=== PATIENT | female | born 1945 | race Caucasian/White ===

== ENCOUNTER 2021-07-11 07:26 | Day surgery (SDC) | payer OTHER, SELFPAY ==
[2021-07-04 12:29] VITALS: BMI 25.9
--- NOTE | 2021-07-08 08:37 | MHC.SHP ---
Pre-Procedural Eval Section A Date of Service: 07/08/21 The patient is an INPATIENT: No Changes since office visit: No Cold of Flu in the past 2 weeks, No New Medical Problems, No Changes in Medication and No Patient answered all questions The History & Physical has been completed within 30 days and I have reviewed it.: Yes Section B Chief Complaint: Cataract Left eye Allergies: Allergies Allergy/AdvReac Type Severity Reaction Status Date / Time doxycycline Allergy Unknown Verified 07/04/21 10:14 Penicillins Allergy Rash Verified 07/04/21 10:14 alendronate sodium AdvReac bone pain Verified 07/04/21 10:14 [From Fosamax] Plan Diagnosis/Plan: Unchanged I have reviewed the history and physical and performed a pertinent physical examination on my patient. No changes have occurred unless specified.
[2021-07-11 08:13] VITALS: BP 141/82; PULSE 87; RESP 18; TEMP 36.6; O2SAT 98
[2021-07-11] MEDS: Tetracaine HCl/PF 0.5% Oph Sol 4 ML DROPS 1 DROP EYE-LEFT (08:17)
[2021-07-11] MEDS: Tropicamide 1 % Ophth Sol 3 ML BTL 1 DROP EYE-LEFT ×3 (08:17→08:19)
[2021-07-11] MEDS: Phenylephrine HCL 2.5% Oph SoL 2 ML BOTTLE 1 DROP EYE-LEFT ×3 (08:17→08:19)
[2021-07-11] MEDS: Lactated Ringers 500 ML 50 ML IVCONT (08:18)
--- NOTE | 2021-07-11 08:47 | HO.ANESPROP2 ---
HPI - Anesthesia Eval Consult details Narrative: left eye cataract [facility] [place] Past Medical History Medical History (Updated 07/04/21 @ 12:31 by hTeresa Yeboah RN) Arthritis COPD (chronic obstructive pulmonary disease) GERD (gastroesophageal reflux disease) Hx of cervical cancer Hyperlipidemia Osteoporosis Thyroid nodule Upper back pain Family History Family history of problems with anesthesia: No Surgical History Surgical History (Updated 07/04/21 @ 12:26 by Theresa Yeboah RN) History of hysteroscopy Hx of bilateral salpingectomy Hx of tubal ligation Hx of unilateral oophorectomy History of Problems with Anesthesia: No Social History Social History Patient Tobacco Use Status: Never used Tobacco Are you DNR?: No Advance Directives: No Advance Directives Information Provided: Yes Advance Directives on File: No Meds Allergies Allergy/AdvReac Type Severity Reaction Status Date / Time doxycycline Allergy Unknown Verified 07/04/21 10:14 Penicillins Allergy Rash Verified 07/04/21 10:14 alendronate sodium AdvReac bone pain Verified 07/04/21 10:14 [From Fosamax] Active Medications: Current Medications Lactated Ringer's (Lr) 500 mls @ 50 mls/hr IVCONT .Q10H GUILLERMINA Last Admin: 07/11/21 08:18 Dose: 50 mls/hr Documented by: Povidone Iodine (Povidone Iodine 5 % Ophth Soln 30 Ml Bottle) 1 appl EYE-LEFT PREOP PRN PRN Reason: Pre-Op Surgical Implant Prophy Home Medications Medication Instructions Recorded Confirmed Last Taken Type Glucosamine Chondroitin 07/04/21 Unknown History acetaminophen 650 mg 650 mg PO Q8H PRN 07/04/21 07/04/21 Unknown History tablet,extended release (Tylenol 8 Hour) calcium carbonate 500 mg (1,250 1 tab PO DAILY 07/04/21 07/04/21 Unknown History mg)-vitamin D3 400 unit tablet (Calcium 500 + D) cholecalciferol (vitamin D3) 25 25 mcg PO DAILY 07/04/21 07/04/21 Unknown History mcg (1,000 unit) tablet (Vitamin D3) multivitamin 1 tab PO DAILY 07/04/21 07/04/21 Unknown History omeprazole 20 mg capsule,delayed 1 cap PO DAILY 07/04/21 07/04/21 Unknown History release simvastatin 10 mg tablet 1 tab PO BEDTIME 07/04/21 07/04/21 Unknown History Exam Exam Date and Time: July 11, 2021 0847 Height,Weight and Vital Signs: Height 5 ft 2 in Weight 64.41 kg Last Vital Signs Temp 98 F 07/11/21 08:13 Pulse 87 07/11/21 08:13 Resp 18 07/11/21 08:13 BP 141/82 H 07/11/21 08:13 Pulse Ox 98 07/11/21 08:13 Airway Mallampati Class: II TM Dist: >3cm Neck ROM: Full Denture: Upper and Lower Heart: [id number] Lungs: cta b/l Assessment and Plan Assessment Anesthesia Assessment: Anesthesia Plan Discussed and Chart Reviewed Final Anesthetic Review Family History of Problems with Anesthesia: No History of Problems with Anesthesia: No NPO: Yes ASA Class: III Final Preanesthetic Review: No Changes in Pt Med Stat, Meds/Allgs Chart Reviewed, Consent Obtained/Reviewed and Anes Risks/Benef Reviewed Patient Risk: Intermediate Procedure Risk: Low Assessment/Block/Sedation in SS: Assess/Block/Sedation-SS Anesthetic Plan Anesthetic Plan: MAC: and Agree w/ Assess. and Plan Disposition: Standard PACU
--- NOTE | 2021-07-11 09:47 | HO.PNOPHT ---
Ophthalmology Procedure Procedure Date of Service: 07/11/21 Ophthalmology Viscoelastic: Healon Duet Dual Pack Pro Ophthalmology Lenses: TECYE [id number] (22) Procedure Notes: PREOPERATIVE DIAGNOSIS: Decreased visual acuity left eye secondary to cataract POSTOPERATIVE DIAGNOSIS: Same PROCEDURE: Left cataract extraction with intraocular lens insertion SURGEON: Joe Jose M.D. ANESTHESIA: Topical/MAC ESTIMATED BLOOD LOSS: None COMPLICATIONS: None After obtaining informed consent, the patient was brought to the operation room suite and placed in the supine position. After adequate sedation per anesthesia, topical drops of Tetracaine were given to the left eye. The eye was then prepped and draped in the usual sterile fashion. The operating room microscope was then positioned over the operative eye and a lid speculum placed. A paracentesis was created. Viscoelastic was then instilled into the anterior chamber. A three plane incision was then created temporally, utilizing a 2.85 mm keratome. Capsulotomy forceps were then utilized to create a circular tear capsulotomy. Hydrodissection and hydrodelineation were carried out until adequate mobilization of the nucleus occurred. Phacoemulsification was then utilized to remove the dense central nucleus followed by removal of the cortical material utilizing the automated aspiration irrigation unit. Viscoat elastic was instilled into the posterior capsular bag followed by placement of a posterior chamber intraocular lens without difficulty. The residual Viscoat elastic was then removed utilizing the automated IA machine. The wound was check and found to be watertight. The patient tolerated the procedure well and the lid speculum was removed. Intracameral injection of Vigamox 0.1 mL followed by a subtenon injection of Kenalog-40 0.2 mL were administered. The patient will be seen in the a.m.
[2021-07-11 10:14] VITALS: BP 131/80; PULSE 79; RESP 16; TEMP 36.4; O2SAT 97
== END 2021-07-11 10:22 | disposition home or self-care (01) ==
PROVIDERS: Visit Provider Ophthalmology
PROC: (CPT 66985; principal; 2021-07-11 09:30)
DX: H25.12 Age-related nuclear cataract, left eye (principal); H40.013 Open angle with borderline findings, low risk, bilateral; H52.4 Presbyopia; J44.9 Chronic obstructive pulmonary disease, unspecified; K21.9 Gastro-esophageal reflux disease without esophagitis; E04.1 Nontoxic single thyroid nodule; E78.00 Pure hypercholesterolemia, unspecified; E78.5 Hyperlipidemia, unspecified; M81.0 Age-related osteoporosis without current pathological fracture; Z79.899 Other long term (current) drug therapy; Z85.41 Personal history of malignant neoplasm of cervix uteri; Z88.0 Allergy status to penicillin; Z88.1 Allergy status to other antibiotic agents; Z88.8 Allergy status to other drugs, medicaments and biological substances
CPT/HCPCS: 66984; J2250; J3010; J3300; V2632

== ENCOUNTER 2021-07-25 06:12 | Day surgery (SDC) | payer OTHER, SELFPAY ==
[2021-07-04 12:32] VITALS: BMI 25.9
--- NOTE | 2021-07-19 14:26 | HO.ANESPROP2 ---
Documented by User: Perla Vu NP 07/19/21 14:26 HPI - Anesthesia Eval Consult details Narrative: 75yo F for Right Cataract Multifocal with IOL Insertion PCP Cleared Left eye done 07/11/21 with MAC: Fent 50, Midaz 2 PMFSH Past Medical History Medical History Arthritis COPD (chronic obstructive pulmonary disease) GERD (gastroesophageal reflux disease) Hx of cervical cancer Hyperlipidemia Osteoporosis Thyroid nodule Upper back pain Family History Family history of problems with anesthesia: No Surgical History Surgical History History of hysteroscopy Hx of bilateral salpingectomy Hx of tubal ligation Hx of unilateral oophorectomy History of Problems with Anesthesia: No Social History Social History Patient Tobacco Use Status: Never used Tobacco Use of substances other than those prescribed or required for medical reasons: No Are you DNR?: No Advance Directives: No Advance Directives Information Provided: Yes Advance Directives on File: No Meds Allergies Allergy/AdvReac Type Severity Reaction Status Date / Time doxycycline Allergy Unknown Verified 07/25/21 06:28 Penicillins Allergy Rash Verified 07/25/21 06:28 alendronate sodium AdvReac bone pain Verified 07/25/21 06:28 [From Fosamax] Home Medications Medication Instructions Recorded Confirmed Last Taken Type Glucosamine Chondroitin 07/04/21 Unknown History acetaminophen 650 mg 650 mg PO Q8H PRN 07/04/21 07/04/21 Unknown History tablet,extended release (Tylenol 8 Hour) calcium carbonate 500 mg (1,250 1 tab PO DAILY 07/04/21 07/04/21 Unknown History mg)-vitamin D3 400 unit tablet (Calcium 500 + D) cholecalciferol (vitamin D3) 25 25 mcg PO DAILY 07/04/21 07/04/21 Unknown History mcg (1,000 unit) tablet (Vitamin D3) multivitamin 1 tab PO DAILY 07/04/21 07/04/21 Unknown History omeprazole 20 mg capsule,delayed 1 cap PO DAILY 07/04/21 07/04/21 Unknown History release simvastatin 10 mg tablet 1 tab PO BEDTIME 07/04/21 07/04/21 Unknown History Exam Exam Date and Time: July 19, 2021 1426 Height,Weight and Vital Signs: Height 5 ft 2 in Weight 64.41 kg Assessment and Plan Assessment Anesthesia Assessment: Chart Reviewed Final Anesthetic Review Family History of Problems with Anesthesia: No History of Problems with Anesthesia: No Documented by User: Shalini Saalzar MD 07/25/21 07:45 [facility] Past Medical History Medical History Arthritis COPD (chronic obstructive pulmonary disease) GERD (gastroesophageal reflux disease) Hx of cervical cancer Hyperlipidemia Osteoporosis Thyroid nodule Upper back pain Surgical History Surgical History History of hysteroscopy Hx of bilateral salpingectomy Hx of tubal ligation Hx of unilateral oophorectomy Social History Social History Patient Tobacco Use Status: Never used Tobacco Use of substances other than those prescribed or required for medical reasons: No Are you DNR?: No Advance Directives: No Advance Directives Information Provided: Yes Advance Directives on File: No Meds Allergies Allergy/AdvReac Type Severity Reaction Status Date / Time doxycycline Allergy Unknown Verified 07/25/21 06:28 Penicillins Allergy Rash Verified 07/25/21 06:28 alendronate sodium AdvReac bone pain Verified 07/25/21 06:28 [From Fosamax] Home Medications Medication Instructions Recorded Confirmed Last Taken Type Glucosamine Chondroitin 07/04/21 Unknown History acetaminophen 650 mg 650 mg PO Q8H PRN 07/04/21 07/04/21 Unknown History tablet,extended release (Tylenol 8 Hour) calcium carbonate 500 mg (1,250 1 tab PO DAILY 07/04/21 07/04/21 Unknown History mg)-vitamin D3 400 unit tablet (Calcium 500 + D) cholecalciferol (vitamin D3) 25 25 mcg PO DAILY 07/04/21 07/04/21 Unknown History mcg (1,000 unit) tablet (Vitamin D3) multivitamin 1 tab PO DAILY 07/04/21 07/04/21 Unknown History omeprazole 20 mg capsule,delayed 1 cap PO DAILY 07/04/21 07/04/21 Unknown History release simvastatin 10 mg tablet 1 tab PO BEDTIME 07/04/21 07/04/21 Unknown History Exam Height,Weight and Vital Signs: Height 5 ft 2 in Weight 64.41 kg Vital Signs Temp Pulse Resp BP Pulse Ox 07/25/21 06:30 97.4 F 85 20 130/65 98 Airway Mallampati Class: II TM Dist: >3cm Neck ROM: Full Partial: Upper and Lower Loose/Missing/Broken Teeth: Yes Heart: RRR Lungs: CTAB Assessment and Plan Assessment Anesthesia Assessment: Anesthesia Plan Discussed Final Anesthetic Review NPO: Yes ASA Class: II Final Preanesthetic Review: No Changes in Pt Med Stat, Meds/Allgs Chart Reviewed, Consent Obtained/Reviewed and Anes Risks/Benef Reviewed Patient Risk: Low Procedure Risk: Low Assessment/Block/Sedation in SS: Assess/Block/Sedation-SS Anesthetic Plan Anesthetic Plan: MAC: Disposition: Standard PACU
--- NOTE | 2021-07-20 08:03 | MHC.SHP ---
Pre-Procedural Eval Section A Date of Service: 07/20/21 The patient is an INPATIENT: No Changes since office visit: No Cold of Flu in the past 2 weeks, No New Medical Problems, No Changes in Medication and No Patient answered all questions The History & Physical has been completed within 30 days and I have reviewed it.: Yes Section B Chief Complaint: Cataract Right Eye Allergies: Allergies Allergy/AdvReac Type Severity Reaction Status Date / Time doxycycline Allergy Unknown Verified 07/04/21 10:14 Penicillins Allergy Rash Verified 07/04/21 10:14 alendronate sodium AdvReac bone pain Verified 07/04/21 10:14 [From Fosamax] Plan Diagnosis/Plan: Unchanged I have reviewed the history and physical and performed a pertinent physical examination on my patient. No changes have occurred unless specified.
[2021-07-25 06:30] VITALS: BP 130/65; PULSE 85; RESP 20; TEMP 36.3; O2SAT 98
[2021-07-25] MEDS: Lactated Ringers 500 ML 50 ML IV (06:51)
[2021-07-25] MEDS: Tetracaine HCl/PF 0.5% Oph Sol 4 ML DROPS 1 DROP EYE-RIGHT (06:51)
[2021-07-25] MEDS: Tropicamide 1 % Ophth Sol 3 ML BTL 1 DROP EYE-RIGHT ×3 (06:52→07:04)
[2021-07-25] MEDS: Phenylephrine HCL 2.5% Oph SoL 2 ML BOTTLE 1 DROP EYE-RIGHT ×3 (06:56→07:07)
--- NOTE | 2021-07-25 08:02 | HO.PNOPHT ---
Ophthalmology Procedure Procedure Date of Service: 07/25/21 Ophthalmology Viscoelastic: Healon Duet Dual Pack Pro Ophthalmology Lenses: TECYE [id number] (22) Procedure Notes: PREOPERATIVE DIAGNOSIS: Decreased visual acuity right eye secondary to cataract POSTOPERATIVE DIAGNOSIS: Same PROCEDURE: Right cataract extraction with intraocular lens insertion IOL Exchange SURGEON: Joe Jose M.D. ANESTHESIA: Topical/MAC ESTIMATED BLOOD LOSS: None COMPLICATIONS: Broken Haptic After obtaining informed consent, the patient was brought to the operating room suite and placed in the supine position. After adequate sedation per anesthesia, topical drops of Tetracaine were given to the right eye. The eye was then prepped and draped in the usual sterile fashion. The operating room microscope was then positioned over the operative eye and a lid speculum placed. A paracentesis was created. Viscoelastic was then instilled into the anterior chamber. A three plane incision was then created temporally, utilizing a 2.85 mm keratome. Capsulotomy forceps were then utilized to create a circular tear capsulotomy. Hydrodissection and hydrodelineation were carried out until adequate mobilization of the nucleus occurred. Phacoemulsification was then utilized to remove the dense central nucleus followed by removal of the cortical material utilizing the automated aspiration irrigation unit. Viscoelastic was instilled into the posterior capsular bag followed by placement of a posterior chamber intraocular lens, the trailing haptic was noted to be broken.The lPCIOL was bisected with intraocular scissors and removed. The capsula bag was refilled with vicoelastic and the PCIOL was placed without difficulty. The residual Viscoelastic was then removed utilizing the automated IA machine. The wound was checked and found to be watertight. The patient tolerated the procedure well and the lid speculum was removed. Intracameral injection of Vigamox 0.1 mL followed by a subtenon injection of Kenalog-40 0.2 mL were administered. The patient will be seen in the a.m.
[2021-07-25 08:45] VITALS: BP 131/75; PULSE 76; RESP 14; TEMP 36.3; O2SAT 99
== END 2021-07-25 08:52 | disposition home or self-care (01) ==
PROVIDERS: Visit Provider Ophthalmology
PROC: (CPT 66985; principal; 2021-07-25 08:00)
DX: H25.11 Age-related nuclear cataract, right eye (principal); H52.4 Presbyopia; H40.013 Open angle with borderline findings, low risk, bilateral; J44.9 Chronic obstructive pulmonary disease, unspecified; K21.9 Gastro-esophageal reflux disease without esophagitis; E04.1 Nontoxic single thyroid nodule; E78.5 Hyperlipidemia, unspecified; M81.0 Age-related osteoporosis without current pathological fracture; Z85.41 Personal history of malignant neoplasm of cervix uteri; Z79.51 Long term (current) use of inhaled steroids; Z79.899 Other long term (current) drug therapy; Z88.0 Allergy status to penicillin; Z88.1 Allergy status to other antibiotic agents; Z88.8 Allergy status to other drugs, medicaments and biological substances
CPT/HCPCS: 66984; J2250; J3010; J3300; V2632